=== PATIENT | female | born 1980 | race Caucasian/White ===

== ENCOUNTER → 2018-04-16 | Outpatient (CLI) | payer OTHER ==
[~2018-04-16] MED LIST: ALBU90OI INH; ONDA4ODT MM
== END | disposition home or self-care (01) ==
LOC: LAB EV 13:51 → LAB SHORT 13:51
DX: N39.0 Urinary tract infection, site not specified (principal)
CPT/HCPCS: 87086

== ENCOUNTER → 2018-05-16 | Outpatient (CLI) | payer OTHER ==
[2018-05-19 15:07] LABS: HPV 16 Negative (Negative); HPV 18 Negative (Negative); HPV OTHER HR TYPES Negative (Negative)
== END ==
LOC: LAB 10:15 → LAB SHORT 10:15
PROVIDERS: Nurse Practitioner Women's Health
DX: Z12.4 Encounter for screening for malignant neoplasm of cervix (principal); N89.8 Other specified noninflammatory disorders of vagina; Z91.89 Other specified personal risk factors, not elsewhere classified
CPT/HCPCS: 87070; 87205; 87624; G0123

== ENCOUNTER → 2020-01-25 | Outpatient (CLI) | payer OTHER | END | disposition home or self-care (01) | DX: K29.70 Gastritis, unspecified, without bleeding (principal) ==

== ENCOUNTER → 2020-02-08 | Outpatient (CLI) | payer OTHER ==
[2020-02-08 16:01] LABS: BASOPHILS ABSOLUTE AUTO 0.04 K/mm3 (0.00-0.23); BASOPHILS PERCENT AUTO 1 % (0-2); EOSINOPHILS ABSOLUTE AUTO 0.26 K/mm3 (0.00-0.68); EOSINOPHILS PERCENT AUTO 3 % (0-6); Hematocrit 40.9 % (33.0-51.0); IMMATURE GRAN ABSOLUTE AUTO 0.01 K/mm3 (0.00-0.10); IMMATURE GRAN PERCENT AUTO 0 % (0-1); LYMPHOCYTES ABSOLUTE AUTO 3.28 K/mm3 (0.84-5.20); LYMPHOCYTES PERCENT AUTO 42 % (21-46); MONOCYTES ABSOLUTE AUTO 0.49 K/mm3 (0.16-1.47); MONOCYTES PERCENT AUTO 6 % (4-13); Mean Corpuscular HGB 30.8 pg (26.0-34.0); Mean Corpuscular HGB Conc 34.2 g/dL (31.5-36.5); Mean Corpuscular Volume 90 fL (80-100); Mean Platelet Volume 9.8 fL (9.1-12.4); NEUTROPHILS PERCENT AUTO 48 % (41-73); Platelet Count 311 K/mm3 (150-400); RDW Coefficient Variation 12.9 % (11.7-14.2); RDW Standard Deviation 42.2 fL (35.1-46.3); Red Blood Cell Count 4.55 M/mm3 (3.80-5.20); White Blood Cell Count 7.88 K/mm3 (4.00-11.30)
[2020-02-08 16:11] LABS: Alanine Aminotransfer (ALT/SGP 20 U/L (12-78); Albumin, Blood 4.1 g/dL (3.4-5.0); Albumin/Globulin Ratio 1.2 (0.8-1.8); Alk Phos 57 U/L (40-126); Anion Gap 8 mmol/L (6-16); Aspartate Aminotrans (AST/SGOT 17 U/L (12-37); Bilirubin, Total 0.8 mg/dL (0.1-1.0); Blood Urea Nitrogen 10 mg/dL (8-24); Bun/Creatinine Ratio 13.9 (12.0-20.0); CO2, Blood 28 mmol/L (21-32); Calcium, Blood 8.8 mg/dL (8.5-10.1); Chloride, Blood 106 mmol/L (98-108); Creatinine, Blood 0.72 mg/dL (0.40-1.00); Globulin, Blood 3.3 g/dL (2.2-4.0); Glomerular Filtration Rate >60 (60-); Glucose, Blood 93 mg/dL (70-99); Potassium, Blood 3.9 mmol/L (3.5-5.5); Sodium, Blood 142 mmol/L (136-145); Total Protein, Blood 7.4 g/dL (6.4-8.2)
[2020-02-08 17:02] LABS: Thyroid Stimulating Hormone 2.963 uIU/mL (0.360-4.800)
== END | disposition home or self-care (01) ==
LOC: LAB SHORT 15:56 → LAB EV 15:56
PROVIDERS: Physician Assistant
DX: R10.9 Unspecified abdominal pain (principal); R53.83 Other fatigue
CPT/HCPCS: 80053; 83690; 84443; 85025

== ENCOUNTER 2022-10-29 07:03 | Day surgery (SDC) | payer OTHER ==
[~2022-10-29] VITALS: Ht 165.1 cm; Wt 73.6 kg
--- NOTE | 2022-10-29 09:18 | NUR ---
Ambulatory in Day Surgery History, Chart, Medications and Allergies reviewed before start of procedure.Pre-Op teaching done. Pt verbalizes understanding. Patient States Post-Procedure ride home has been arranged.
--- NOTE | 2022-10-29 14:18 | NUR ---
PT ARRIVED FROM PACU, SHE IS VERY SLEEPY. SHE WILL AWAKEN WHEN TALKED TO BUT WEAKLY SHAKES HEAD YES/NO. DENIES PAIN AT THIS TIME. DOES NOT ANSWER WHEN ASKED ABOUT NAUSEA. SATS 100% ON ROOM AIR. IS CURRENTLY SITTING UP IN BED WITH HER LEGS CROSSED LEANED FORWARD. WHEN ASKED IF SHE WAS COMFORTABLE SHE LOOKED AT THIS RN AND FELL ASLEEP. VSS PT HAS FAN BLOWING ON HER FOR COMFORT.
--- NOTE | 2022-10-29 14:54 | NUR ---
PT MORE AWAKE AT THIS TIME. ABLE TO ANSWER YES/NO QUESTIONS. WHEN SHE ATTEMPTS TO TALK LONGER SHE REPORTS NAUSEA. MEDICATED PER EMAR AT THIS TIME. PT USING CALL LIGHT APPROPRIATLY.
[2022-10-29 16:28] LABS: BASOPHILS ABSOLUTE AUTO 0.03 K/mm3 (0.00-0.23); BASOPHILS PERCENT AUTO 0 % (0-2); EOSINOPHILS PERCENT AUTO 0 % (0-6); Hematocrit 37.1 % (33.0-51.0); IMMATURE GRAN ABSOLUTE AUTO 0.08 K/mm3 (0.00-0.10); IMMATURE GRAN PERCENT AUTO 0 % (0-1); LYMPHOCYTES PERCENT AUTO 4 % (21-46); MONOCYTES PERCENT AUTO 1 % (4-13); Mean Corpuscular HGB 30.7 pg (26.0-34.0); Mean Corpuscular Volume 88 fL (80-100); Mean Platelet Volume 10.2 fL (9.1-12.4); NEUTROPHILS PERCENT AUTO 94 % (41-73); Platelet Count 261 K/mm3 (150-400); RDW Coefficient Variation 12.6 % (11.7-14.2); RDW Standard Deviation 40.3 fL (35.1-46.3); Red Blood Cell Count 4.23 M/mm3 (3.80-5.20); White Blood Cell Count 19.01 K/mm3 (4.00-11.30)
--- NOTE | 2022-10-29 17:29 | NUR ---
PT MUCH MORE ALERT AND AWAKE AT THIS TIME, SHE DENIES NAUSEA AND PAIN. CURRENTLY TRYING TO EAT DINNER. PLAN IS FOR PATIENT TO ATTEMPT TO WALK AFTER DINNER AND USE THE RESTROOM. NO DRAINAGE AT THIS TIME, LAP SITES CDI.
--- NOTE | 2022-10-29 18:52 | NUR ---
DISCHARGE PT TOLERATING SIPS OF WATER AND SMALL FOOD INTAKE. PT VERY ADAMANT ON GOING HOME THIS HAS HAPPENED WITH PREVIOUS PROCEDURES. SHE HAS AMBULATED WELL WITH NO WEAKNESS NOTED. VOIDING. SCANT DRAINAGE ON KAVITHA PAD. ALL INSTRUCTIONS GONE OVER WITH PATIENT. NO FURTHER QUESTIONS AT THIS TIME.
--- NOTE | 2022-11-01 07:04 | NUR ---
11/01/22 0704 Nivia Bansal VERIFICATIONS: EDIT CHART.
== END 2022-10-29 18:53 | disposition home or self-care (01) ==
LOC: ORSCMMR 07:03 → ORD 09:45 → ORSCMMR 09:45 → SURS 13:54 → ORSCMMR 18:53
PROVIDERS: Obstetrics & Gynecology
PROC: 0UT9FZZ Resection of Uterus, Via Natural or Artificial Opening With Percutaneous Endoscopic Assistance (ICD-10-PCS; principal; 2022-10-29 09:45)
DX: N93.8 Other specified abnormal uterine and vaginal bleeding (principal); N80.03 Adenomyosis of the uterus; Z87.891 Personal history of nicotine dependence
CPT/HCPCS: 36415; 85025; 88307; A9270; J0690; J1100; J1885; J2060; J2270; J2405; J2550; J2704; J3010; J7120